=== PATIENT | male | born 2000 | race Caucasian/White ===

== ENCOUNTER → 2018-03-15 | Outpatient (CLI) | payer OTHER ==
[2018-03-15 17:19] LABS: ABSOLUTE BASOPHILS 0.1 thou/uL (0.0-0.2); ABSOLUTE EOSINOPHILS 0.1 thou/uL (0.0-0.7); ABSOLUTE MONOCYTES 0.7 thou/uL (0.0-1.2); ABSOLUTE NEUTROPHILS 8.1 thou/uL (1.6-8.1); BASOPHILS 0.7 %; HEMATOCRIT 43.3 % (42.0-52.0); HEMOGLOBIN 14.4 gm/dL (14.0-18.0); LYMPHOCYTES 25.2 %; MCH 27.6 pg (26.0-34.0); MCHC 33.2 g/dL (28.0-37.0); MCV 83.2 fL (80.0-100.0); MONOCYTES 5.6 %; MPV 8.7 fl. (7.2-11.1); NUCLEATED RBCS 0 /100WBC; PLATELET COUNT* 340 thou/uL (150-400); POLYS 67.5 %; RDW-CV 13.3 % (10.5-14.5)
[2018-03-19 02:07] LABS: MYCOPLASMA PNEUMONIA IgG 211 U/mL (0-99); MYCOPLASMA PNEUMONIA IgM <770 U/mL (0-769)
== END ==
LOC: M.LAB 16:46
PROVIDERS: Family Medicine
DX: R05 Cough (principal)

== ENCOUNTER 2019-10-16 04:52 | Emergency (ER) | payer OTHER ==
[~2019-10-16] VITALS: Ht 190.5 cm; Wt 158.8 kg
[2019-10-16 05:30] LABS: ABSOLUTE BASOPHILS 0.1 thou/uL (0.0-0.2); ABSOLUTE EOSINOPHILS 0.2 thou/uL (0.0-0.7); ABSOLUTE LYMPHOCYTES 3.5 thou/uL (0.8-5.3); ABSOLUTE MONOCYTES 0.9 thou/uL (0.0-1.2); ABSOLUTE NEUTROPHILS 6.3 thou/uL (1.6-8.1); BASOPHILS 0.9 %; EOSINOPHILS 2.1 %; HEMATOCRIT 40.6 % (42.0-52.0); HEMOGLOBIN 13.8 gm/dL (14.0-18.0); LYMPHOCYTES 31.9 %; MCH 27.7 pg (26.0-34.0); MCHC 33.9 g/dL (28.0-37.0); MCV 81.7 fL (80.0-100.0); MONOCYTES 8.1 %; MPV 8.3 fl. (7.2-11.1); NUCLEATED RBCS 0 /100WBC; PLATELET COUNT* 320 thou/uL (150-400); RBC 4.97 mil/uL (4.50-6.00); RDW-CV 13.2 % (10.5-14.5)
[2019-10-16 05:45] LABS: CALCIUM 8.3 mg/dL (8.5-10.1); POTASSIUM 4.1 mmol/L (3.5-5.1)
[2019-10-16 05:56] VITALS: BP 128/81
[2019-10-16 05:56] LABS: ALBUMIN 3.6 g/dL (3.4-5.0); TOTAL BILIRUBIN 0.3 mg/dL (<0.1-1.0); TOTAL PROTEIN 7.2 g/dL (6.4-8.2)
[2019-10-16 05:58] LABS: PROTIME 10.2 Seconds (9.20-11.50)
--- NOTE | 2019-10-16 08:31 | EKG ---
[place] [address] ELECTROCARDIOGRAM REPORT Name: MAXX PALOMARES Room: [facility]#: [id number] Admission: 10/16/19 Attend Phys: Discharge: 10/16/19 Date of : [birth year] Date of Service: 10/16/19 0455 Report #: [id number] THIS REPORT FOR: //name// [facility] ED Test Date: 2019-10-16 Test Time: 04:55:29 Pat Name: MAXX PALOMARES Department: Room: Gender: Client Care Coordinator: : 2000 Requested By: Latoya Yeboah Order Number: [id number] MD: Jose Cruz Coto Measurements Intervals [place] Rate: 89 P: 58 [place]: 167 QRS: 53 QRSD: 112 T: 9 QT: 356 QTc: 434 Interpretive Statements Sinus arrhythmia Borderline intraventricular conduction delay No previous ECG available for comparison Electronically Signed On 10-16-2019 8:29:14 CDT by Jose Cruz Coto [email or web address] <ELECTRONICALLY SIGNED> By: Jose Cruz Coto MD, [facility] 10/16/19 0829 0455 4 Jose Cruz Coto MD, FACC /EPI
== END 2019-10-16 06:26 | disposition home or self-care (01) ==
LOC: M.ERS 04:52
PROVIDERS: Emergency Medicine
DX: R07.89 Other chest pain (principal); E66.01 Morbid (severe) obesity due to excess calories; Z68.41 Body mass index [BMI] 40.0-44.9, adult

== ENCOUNTER → 2019-12-02 | Outpatient (CLI) | payer OTHER ==
[2019-12-02] VITALS (8 sets, daily range): BP systolic 116–127; BP diastolic 61–76
[~2019-12-02] VITALS: Ht 182.9 cm; Wt 163.6 kg
[2019-12-02 11:53] LABS: HEMATOCRIT 43.4 % (42.0-52.0); HEMOGLOBIN 14.9 gm/dL (14.0-18.0); MCH 28.2 pg (26.0-34.0); MCHC 34.4 g/dL (28.0-37.0); MCV 81.9 fL (80.0-100.0); MPV 8.7 fl. (7.2-11.1); RBC 5.3 mil/uL (4.50-6.00); RDW-CV 13.3 % (10.5-14.5); WBC 9.8 thou/uL (4.0-11.0)
[2019-12-02 12:02] LABS: ANION GAP 8 mmol/L (7-16); BUN 11 mg/dL (7-18); CALCIUM 8.7 mg/dL (8.5-10.1); CHLORIDE 104 mmol/L (98-107); CO2 30 mmol/L (21-32); GLUCOSE 88 mg/dL (70-99); POTASSIUM 3.9 mmol/L (3.5-5.1); SODIUM 142 mmol/L (136-145)
[2019-12-02 12:03] LABS: APTT 25.6 Seconds (25.0-31.3); PROTIME 10.7 Seconds (9.20-11.50)
[2019-12-02 12:08] LABS: ALBUMIN 3.9 g/dL (3.4-5.0); ALKALINE PHOSPHATASE 74 U/L (46-116); CHOLESTEROL 170 mg/dL (<200); HDL CHOLESTEROL 38 mg/dL (>40); LDL CHOLESTEROL 114 mg/dL (<100); SGOT 14 U/L (15-37); SGPT 26 U/L (30-65); TC:HDL 4.5 Ratio (Not establshd); TOTAL BILIRUBIN 0.5 mg/dL (<0.1-1.0); TOTAL PROTEIN 7.8 g/dL (6.4-8.2); TRIGLYCERIDE 94 mg/dL (<150); VLDL 19 mg/dL (<40)
[2019-12-02 12:09] LABS: SERUM ASSESSMENT Clear
--- NOTE | 2019-12-02 12:28 | EKG ---
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
--- NOTE | 2019-12-04 13:33 | CARD ---
[address] [address] CARDIAC CATH REPORT Name: [facility]XX PALOMARES [id number] Admission: 12/02/19 Attend Phys: Jose Cruz Coto MD Discharge: Date of : [birth year] Report #: [id number] THIS REPORT FOR: //name// cc: Richie Branch Vincent R. DO ~ APPROVED REPORT Study performed: 12/02/2019 07:43:39 Patient Details Patient Status: Out-Patient Room #: The patient is a 19 year-old male Event Personnel Jose Cruz Coto Hvac/R Instructor, Haim Saldivar RN Seafood Fisherman, Oskar Agrawal PROGRAMMING DEVELOPMENT PROJECT MANAGER Monitor, Wendi Boston RTR Scrub Procedures Performed Art Access - R femoral artery Left Heart Cath w/or w/o Coronaries LHC, Hemostasis w/ Mynx Admission/Lab Medications/Medications given during procedure Fentanyl IV 25 mcg, Midazolam (Versed) IV 1 mg, Lidocaine Subcut 15 ml Procedure Narrative The patient was brought electively to the Cardiac Catheterization Laboratory and was prepped and draped in a sterile manner. The right femoral was infiltrated with 2% Lidocaine subcutaneous anesthesia. A 6F [place] sheath was inserted into the right femoral artery. Coronary angiography was performed using coronary diagnostic catheters. The right coronary system was accessed and visualized with a 6F JR4 catheter. The left coronary system was accessed and visualized with a 6F JL4 catheter. The left ventricle was accessed and visualized with a 6F Pig[place] catheter. Left ventricular/Aortic Valve gradient assessed via catheter pullback. Pre-demployment femoral angiogram was performed . Closure device was deployed with a 6 Fr MynxGrip 6/7F. The patient tolerated the procedure well and there were no complications associated with the procedure. There was no hematoma. Intraoperative Conscious Sedation Sedation start time: 1245 Case end Time: 1259 Fentanyl 25 mcg Vers[place] 1 [place] [address] CARDIAC CATH REPORT Name: MAXX PALOMARES Room: [facility]#: [id number] Admission: 12/02/19 Attend Phys: Jose Cruz Coto MD Discharge: Date of : [birth year] Report #: [id number] Fluoro Time: 1.8 minutes Dose: DAP [id number] cGycm2 3163 mGy Contrast Type and Amount: Visipaque 100 ml Coronary Angiography The patient's coronary anatomy is right dominant. Diagnostic Cath Left Main The left main coronary artery is normal and bifurcates into a left anterior descending and circumflex coronary artery. LAD The left anterior ascending coronary artery is normal in its proximal mid and distal portion. Diagonal 1 A small first diagonal branch is normal. Diagonal 2 A small second diagonal branch is normal. Diagonal 3 A small third diagonal branch is normal. Circumflex The circumflex coronary artery is normal in its proximal mid and distal portion. OM1 A large and branching first obtuse marginal branch is normal. OM2 A moderate size second obtuse marginal branch is normal. Right Coronary The right coronary artery is normal in its proximal mid and distal portion. R PDA A right posterior descending artery is normal. RPLV A right posterior lateral branch is normal. Left Ventriculography The left ventricle is normal in size with normal contractility. The left ventricular ejection fraction is estimated to be 65%. Hemodynamics The aortic pressure is 127/91 mmHg with a mean of 106 mmHg. The left ventricular pressure is 135/21 mmHg with a mean of mmHg. The left ventricular end diastolic pressure is 36 mmHg. Conclusion 1. Normal coronary arteries. 2. Normal left ventricular systolic function. 3. Elevated left ventricular end-diastolic pressure consistent [place] [address] CARDIAC CATH REPORT Name: MAXX PALOMARES Room: [facility]#: [id number] Admission: 12/02/19 Attend Phys: Jose Cruz Coto MD Discharge: Date of : [birth year] Report #: [id number] Recommendations 1. Continue aggressive treatment of underlying hypertension. <ELECTRONICALLY SIGNED> By: Jose Cruz Coto MD, [facility] 12/04/19 1332 1332 1332[facility] C[facility] MD, FACC /INF
== END | disposition home or self-care (01) ==
LOC: M.CL 10:54
PROVIDERS: ATTEND Internal Medicine Cardiovascular Disease
DX: R94.39 Abnormal result of other cardiovascular function study (principal); R07.2 Precordial pain; I11.9 Hypertensive heart disease without heart failure; Z79.899 Other long term (current) drug therapy; Z98.890 Other specified postprocedural states